=== PATIENT | male | born 1985 | race Caucasian/White ===

== ENCOUNTER 2021-02-12 12:57 | Outpatient (RCR) | payer OTHER, SELFPAY | END 2021-02-27 23:59 | disposition home or self-care (01) | LOC: SST 12:57 | PROVIDERS: PCP Registered Nurse; Referring Provider Registered Nurse; Visit Provider Registered Nurse | DX: R47.01 Aphasia (principal); R47.9 Unspecified speech disturbances | CPT/HCPCS: 92507; 92523; 92526; 92610 ==

== ENCOUNTER 2021-02-28 06:00 | Outpatient (RCR) | payer OTHER, SELFPAY | END 2021-03-30 23:59 | disposition home or self-care (01) | LOC: SST 06:00 | PROVIDERS: PCP Registered Nurse; Referring Provider Registered Nurse; Visit Provider Registered Nurse | DX: R47.01 Aphasia (principal); R47.9 Unspecified speech disturbances | CPT/HCPCS: 92507; 92526 ==

== ENCOUNTER 2021-03-31 06:00 | Outpatient (RCR) | payer OTHER, SELFPAY | END 2021-04-29 23:59 | disposition home or self-care (01) | LOC: SST 06:00 | PROVIDERS: PCP Registered Nurse; Referring Provider Registered Nurse; Visit Provider Registered Nurse | DX: R47.01 Aphasia (principal); R47.9 Unspecified speech disturbances | CPT/HCPCS: 92507; 92526 ==

== ENCOUNTER 2021-04-30 06:00 | Outpatient (RCR) | payer OTHER, SELFPAY | END 2021-05-30 23:59 | disposition home or self-care (01) | LOC: SST 06:00 | PROVIDERS: PCP Registered Nurse; Referring Provider Registered Nurse; Visit Provider Registered Nurse | DX: R47.01 Aphasia (principal); R47.9 Unspecified speech disturbances | CPT/HCPCS: 92507; 92526 ==

== ENCOUNTER 2021-05-31 06:00 | Outpatient (RCR) | payer OTHER, SELFPAY | END 2021-06-29 23:59 | disposition home or self-care (01) | LOC: SST 06:00 | PROVIDERS: PCP Registered Nurse; Referring Provider Registered Nurse; Visit Provider Registered Nurse | DX: R47.01 Aphasia (principal) | CPT/HCPCS: 92507 ==

== ENCOUNTER 2022-04-18 09:42 | Outpatient (CLI) | payer OTHER, SELFPAY ==
--- NOTE | 2022-04-18 10:00 | FL_ITS ---
WS: [id number] MODIFIED BARIUM SWALLOW HISTORY: Other dysphagia FLUOROSCOPY TIME: 3min [id number] # of spot films: 1 Modified barium swallow was performed by the speech pathologist. Fluoroscopy was provided with the pa tient in a lateral projection. Multiple food consistencies were provided. No aspiration or laryngeal penetration was evident. Patient had a difficult time initiating the swall owing mechanism. After the swallowing was initiated no abnormality. No significant coating of the pha rynx. Initiation during swallowing of the barium tablet was difficult. Once the swallowing was initia onelia no difficulty or obstruction in the esophagus. FL/FL barium swallow modifd [id number] IMPRESSION: 1. Difficulty initiating swallowing mechanism. 2. No aspiration or laryngeal penetration. Please see speech therapist report also for recommendations.
== END 2022-04-18 09:43 | disposition home or self-care (01) ==
PROVIDERS: PCP Registered Nurse; Visit Provider Otolaryngology
DX: R13.19 Other dysphagia (principal)
CPT/HCPCS: 74230; 92611

== ENCOUNTER 2022-10-11 07:11 | Outpatient (CLI) | payer OTHER, SELFPAY ==
--- NOTE | 2022-10-11 07:53 | MR_ITS ---
WS: [id number] MRI HEAD WITH CONTRAST TECHNIQUE: Sagittal T1, T2 axial, T2 axial FLAIR, axial susceptibility weighted imaging, axial diffus ion weighted images, and coronal T2 images were obtained. Pre and post-T1 axial and post T1 coronal i mages. ADC and FSPGR images. CLINICAL INFORMATION: DYSPHAGIA, UNSPECIFIED/DYSARTHRIA ANARTHRIA/WEAKNESS COMPARISON: CT head 2019 FINDINGS: No evidence of restricted diffusion to suggest acute ischemia. Ventricular system and basal cisterns are patent. No hemosiderin on the susceptibly weighted images. Slight hazy periventricular T2 hyperin tensity. No suspicious intracranial lesions. No abnormal gadolinium enhancement. Normal dural venous sinuses. Normal optic chiasm and pituitary infundibulum. Normal temporal lobes and hippocampal formations. Nor mal cavernous sinuses and Meckel's cave. Normal posterior fossa. Normal vascular flow voids at the sk ull base. No extra-axial fluid collections. No evidence of mass or mass effect. Normal posterior nasopharynx. Normal parapharyngeal fat. Mild mucosal thickening in the paranasal sin uses. Mastoid air cells well aerated. MR/MR head wo/w con [id number] IMPRESSION: 1. No evidence of restricted diffusion to suggest acute ischemia. 2. Minimal hazy periventricular T2 hyperintensity nonspecific may be incidenta l but can be seen with prior infectious or inflammatory etiologies. No focal in tracranial lesions. 3. No abnormal gadolinium enhancement. 4. No hemosiderin on susceptibly weighted images. 5. Temporal lobes and hippocampal formations are normal in appearance. 6. No other suspicious findings.
[2022-10-11 08:20] LABS: Erythrocyte Sedimentation Rate < 1 mm/hr (0-10)
[2022-10-11 08:21] LABS: Estmated Average Glucose 74; Hemoglobin A1C 4.2 % (4.0-6.0)
[2022-10-11] MEDS: gadobenate dimeglumine 20 mL vial IV (09:02)
[2022-10-12 13:00] LABS: PROTEIN, TOTAL 6.7 g/dL (6.1-8.1)
[2022-10-12 14:45] LABS: ALBUMIN 4.2 g/dL (3.8-4.8); ALPHA 1 GLOBULIN 0.3 g/dL (0.2-0.3); ALPHA 2 GLOBULIN 0.4 g/dL (0.5-0.9); BETA 1 GLOBULIN 0.3 g/dL (0.4-0.6); BETA 2 GLOBULIN 0.3 g/dL (0.2-0.5); GAMMA GLOBULIN 1.3 g/dL (0.8-1.7)
== END 2022-10-11 07:12 | disposition home or self-care (01) ==
PROVIDERS: PCP Registered Nurse; Visit Provider Internal Medicine
DX: R13.10 Dysphagia, unspecified (principal); R47.1 Dysarthria and anarthria; R53.1 Weakness
CPT/HCPCS: 36415; 70553; 83036; 83516; 83519; 84155; 84165; 85651; A9577

== ENCOUNTER 2023-01-09 06:00 | Outpatient (RCR) | payer OTHER, SELFPAY | END 2023-01-27 23:59 | disposition home or self-care (01) | LOC: TST 06:00 | PROVIDERS: Visit Provider Otolaryngology | DX: R47.9 Unspecified speech disturbances (principal); R47.01 Aphasia | CPT/HCPCS: 92507; 92523; 92526; 92610 ==

== ENCOUNTER 2023-01-28 06:00 | Outpatient (RCR) | payer OTHER, SELFPAY | END 2023-02-27 23:59 | disposition home or self-care (01) | LOC: TST 06:00 | PROVIDERS: PCP Registered Nurse; Visit Provider Otolaryngology | DX: R47.9 Unspecified speech disturbances (principal); R47.01 Aphasia; Z87.828 Personal history of other (healed) physical injury and trauma | CPT/HCPCS: 92507; 92526 ==

== ENCOUNTER 2023-02-13 10:47 | Outpatient (CLI) | payer OTHER, SELFPAY ==
--- NOTE | 2023-02-13 11:00 | FL_ITS ---
WS: [id number] Exam: FL barium swallow modifd [id number] Date/Time of Exam: 02/13/2023 10:54 AM Reason For Exam: R13.10 - Dysphagia, unspecified Fluoroscopy time: 6min [id number] minutes # of spot films: Modified barium swallow was performed in conjunction with the speech therapy service. The patient experienced some difficulty initiating the swallowing process at the level of the orophar ynx. The patient tolerated all consistencies of barium mixture foodstuffs without aspiration or penet ration. The patient ingested a barium tablet without complication or aspiration. FL/FL barium swallow modifd [id number] IMPRESSION: 1. The patient takes experienced some difficulty initiating the swallowing proc ess at the level of the oropharynx. 2. No aspiration or penetration was noted. A separate report of findings and recommendations will follow from the speech t herapy service.
== END 2023-02-13 10:48 | disposition home or self-care (01) ==
PROVIDERS: PCP Registered Nurse; Visit Provider Otolaryngology
DX: R13.12 Dysphagia, oropharyngeal phase (principal)
CPT/HCPCS: 74230; 92611

== ENCOUNTER 2023-02-28 06:00 | Outpatient (RCR) | payer OTHER, SELFPAY | END 2023-03-30 23:59 | disposition home or self-care (01) | LOC: TST 06:00 | PROVIDERS: PCP Registered Nurse; Visit Provider Otolaryngology | DX: R13.19 Other dysphagia (principal); R47.1 Dysarthria and anarthria; Z87.828 Personal history of other (healed) physical injury and trauma | CPT/HCPCS: 92507 ==

== ENCOUNTER 2023-03-27 11:22 | Outpatient (CLI) | payer OTHER, SELFPAY ==
[2023-04-02 00:44] LABS: HMGCR IgG Antibody <2 CU (<20)
[2023-04-05 14:56] LABS: Myositis EJ AB <11 SI (<11); Myositis JO-1 AB <11 SI (<11); Myositis MDA-5 AB <11 SI (<11); Myositis MI-2 Alpha AB <11 SI (<11); Myositis MI-2 Beta AB <11 SI (<11); Myositis NXP-2AB <11 SI (<11); Myositis OJ AB <11 SI (<11); Myositis PL-12 AB <11 SI (<11); Myositis PL-7 AB <11 SI (<11); Myositis SRP AB <11 SI (<11); Myositis TIF-1y AB <11 SI (<11)
== END 2023-03-27 11:23 | disposition home or self-care (01) ==
PROVIDERS: PCP Registered Nurse; Visit Provider Psychiatry & Neurology Neurology
DX: M62.81 Muscle weakness (generalized) (principal)
CPT/HCPCS: 36415; 83520; 84182; 86235

== ENCOUNTER → 2023-12-05 10:29 | Outpatient (BNVA) | payer MEDICAID, SELFPAY | PROVIDERS: PCP Registered Nurse; Visit Provider Registered Nurse | DX: Z79.899 Other long term (current) drug therapy (principal); Z71.89 Other specified counseling | CPT/HCPCS: 93005 ==

== ENCOUNTER 2024-12-01 16:44 | Emergency (ER) | payer MEDICAID, SELFPAY ==
[2024-12-01 16:47] VITALS: BP 113/68; PULSE 70; RESP 16; TEMP 36.6; O2SAT 98; BMI 20.9
--- NOTE | 2024-12-01 18:42 | XRR_ITS ---
PROCEDURE INFORMATION: Exam: XR Abdomen Exam date and time: 12/01/2024 6:55 PM Age: 39 years old Clinical indication: Device placement; Gi device; Gastrostomy, other; Prior surgery; Surgery date: 3-7 days post-operative; Surgery type: Peg tube placement; Peg tube confirmation; 15ml gastrograffin flushed through gtube, followed by 15ml normal saline alg TECHNIQUE: Imaging protocol: Radiologic exam of the abdomen. Views: Frontal supine view of the abdomen. 1 View. COMPARISON: No relevant prior studies available. FINDINGS: Tubes, catheters and devices: Peg tube with retainer in the mid body of the stomach. There is contrast in the stomach with no evidence of leak. Lungs: The lung bases are clear. Gastrointestinal tract: Scattered stool throughout the colon. Bones/joints: Unremarkable. XR/XR KUB portable [id number] IMPRESSION: Peg tube in the mid stomach. No visible leak.
--- NOTE | 2024-12-01 19:13 | W.ED.GENADLT ---
HPI - General Adult General: Chief complaint: General Medical Stated complaint: pulled gi tube, abd pain Time Seen by Provider: 12/01/24 18:02 History of Present Illness: 39-year-old male patient who had recent G-tube placement. He presents after he got caught in his waistband, and tucked. There was some bleeding. There is concerned that it is dislodged. He is having some pain. Bleeding is controlled. No fever. No vomiting. Related Data Home Medications ?Medication ?Instructions ?Recorded ?Confirmed clonidine HCl 0.1 mg tablet mg PO BID 12/05/23 05/31/24 pimozide 1 mg tablet mg PO DAILY 12/05/23 05/31/24 quetiapine 50 mg tablet mg PO DAILY 12/05/23 05/31/24 sertraline 50 mg tablet mg PO DAILY 12/05/23 05/31/24 Allergies Allergy/AdvReac Type Severity Reaction Status Date / Time No Known Allergies Allergy Verified 05/31/24 10:26 [facility] ED PFSH: Medical History History of reduction of orbital fracture History of traumatic head injury 2019 No pertinent past medical history Social History Smoking and tobacco/nicotine status: never used tobacco/nicotine Alcohol intake: former Substance/Drug Use: never Physical Exam Const: COMMON NORMALS: no acute distress GENERAL APPEARANCE: not ill appearing HENMT: COMMON NORMALS: normocephalic HEAD & SCALP: normocephalic Eye: COMMON NORMALS: Equal, round and reactive pupils present and EOMs intact bilaterally PUPIL: Yes Equal, round and reactive pupils present Neck/C-Spine: COMMON NORMALS: full ROM Chest: CHEST: Yes Symmetrical chest wall rise Resp: COMMON NORMALS: normal respiratory effort and clear to auscultation bilaterally AUSCULTATION: clear to auscultation bilaterally Cardio: COMMON NORMALS: regular rate and regular rhythm RATE: regular rate RHYTHM: regular rhythm GI: COMMON NORMALS: Soft to palpation INSPECTION: No Abdominal wall edema and No abdominal distension PALPATION: Yes Soft to palpation OTHER: Inspection of G-tube, reveals that is in place. Anchors are present. No bleeding. Course Vital Signs: Vital signs: Vital Signs Temperature 97.9 F 12/01/24 16:47 Pulse Rate 70 12/01/24 16:47 Respiratory Rate 16 12/01/24 16:47 Blood Pressure 113/68 12/01/24 16:47 Pulse Oximetry 98 12/01/24 16:47 Oxygen Delivery Me thod Room Air 12/01/24 16:47 MDM - General Adult Medical Decision Making G-tube is in place by x-ray. Diet confirms position. It flushes without pain or problem. It is re- dressed, and he will be allowed discharge. Lab Data Radiology Impressions KUB X-Ray 12/01/24 18:42 IMPRESSION: Peg tube in the mid stomach. No visible leak. All radiology interpretation(s) finalized by discharge Discharge Plan Discharge Patient Disposition: Home Clinical Impression: Problem with gastrostomy tube Condition: Stable Prescriptions: No Action quetiapine 50 mg tablet PO DAILY Rx Instructions: @ bedtime sertraline 50 mg tablet PO DAILY Rx Instructions: at bedtime clonidine HCl 0.1 mg tablet PO BID pimozide 1 mg tablet PO DAILY Rx Instructions: @ bedtime Discharge Orders: Discharge ED (Routine); Ordered 12/01/24 Ordered By: Abdirashid Hager Referrals: Rafy Mast FNP [Primary Care Provider, Family Practice] Patient Instructions: GI Tube Care, Opioid Safety, Pain Management Activity Restrictions/Additional Instructions: Your feeding tube is in place. Return for any problems. Follow-up with your doctor. Print Language: Honduran Coding Level of Care Code ED Watch Electrician for Jaja Lo
== END 2024-12-01 19:55 | disposition home or self-care (01) ==
PROVIDERS: Emergency Provider Emergency Medicine; PCP Registered Nurse
DX: K94.23 Gastrostomy malfunction (principal)
CPT/HCPCS: 74018; 99283; Q9963

== ENCOUNTER 2025-07-12 13:12 | Emergency (ER) | payer MEDICAID, SELFPAY ==
--- OUTSIDE RECORDS SUMMARY | 2025-07-09 10:00 | XMS_ITS | Encounter Summary ---
Author Organization [facility] Address 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 Video Visit [facility] Infectious Disease[facility] [address] [facility] [address] [place] [address] Alie Bill, [facility] [address] [facility] [address] [place] [address] Prepatellar bursitis of right knee (Primary Dx); Cellulitis of right lower extremity; Tourette syndrome Social History Tobacco Use Types Packs/Day Years Used Date Smoking Tobacco: Never Smokeless Tobacco: Current Chew Alcohol Use Standard Drinks/Week Comments Not Currently 0 (1 standard drink = 0.6 oz pur e alcohol) Haven't had a beer in a year Feeling Safe Answer Date Recorded Are you in a relationship wi th someone who hurts you emotionally and/or physically? 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 Gender Identity Not on file Sexual Orientation Not on file documented as of this encounter Progress Notes * Alie Bill, DNP - 07/09/2025 10:02 AM CST INFECTIOUS DISEASES CLINIC NOTE Patient Active Problem List Diagnosis Code Excessive salivation K11.7 TBI (traumatic brain injury) ([facility]) S06.9XAA Dysphonia of Saeid de La Tourette's syndrome F95.2, R49.0 Dysphagia R13.10 Dysarthria R47.1 Abnormal gait R26.9 Functional neurological symptom disorder with mixed symptoms F44.7 PEG tube malfunction ([facility]) K94.23 Infected abrasion of skin of right foot S90.811A, L08.9 S/P Bursectomy, D&I (02/16/25), Septic prepatellar bursitis of right knee M71.161 H/O traumatic brain injury Z87.820 Protein-calorie malnutrition, moderate E44.0 Cellulitis of right lower extremity L03.115 Receiving intravenous antibiotic treatment as outpatient Z79.2 Therapeutic drug monitoring Z51.81 Ataxia R27.0 Peripheral polyneuropathy G62.9 Tremor R25.1 Feeding by G-tube ([facility]) Z93.1 Tourette syndrome F95.2 HPI: is a 40 y.o. male being seen for/chief complaint of septic bursitis right knee, and cellulitis. Patient w/PMH of TBI, Tourette syndrome, and protein calorie malnutrition. Patient w/recent hospitalization 02/15/2025. Patient previously evaluated and managed by DR Tomas Carmona. s/p debridement 02/16/2025 w/CXs negative. Patient treated w/IV ceftriaxone and daptomycin w/stop date 03/06/2025which has been completed. Today's encounter, for 3-month follow-up, was completed via two-way synchronous (audio and video) communication w/patient at home. Patient expressed understanding that usingtechnology outside of [facility] has higher potential to introduce privacy risks. Patient's identity was confirmed (YES). Patient gave verbal consent to have these services billed to their insurance and expressed understanding that co-insurance and deductible may apply (YES). Cumulative time spent delivering the care documented in this encounter 15 minutes. Patient denies fever, chills, nausea, vomiting, diarrhea, or pain. CRP 04/22/2025 normal. 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 Family History is non-contributory to his current ID illness. Subjective: Review of Systems Constitutional: Denies fatigue, fever, or chills Skin: Denies rash, new lesions, or itching HEENT: Denies headache Respiratory: Denies cough, or SOB CV: Denies chest pain, or palpitations PV: Denies pain, bruising, or swelling GI/: Denies nausea, vomiting, or diarrhea; admits eating and drinking okay MS: Denies pain Objective: Physical Exam There were no vitals taken for this visit. General appearance: Well developed; awake, alert, and oriented to person, place, and time; pleasantand cooperative; NAD Skin: [place], warm, and dry; surgical incision right knee well-healed without surrounding erythema, patient denies warmth HEENT: NCAT; PERRL, anicteric; moist mucous membranes Chest/Lungs: Regular respiratory rate, nonlabored, good chest excursion CV: RRR PV: No edema MS: LACEY X4 Neuro: Awake, alert, and oriented to person, place, and time Assessment: Septic prepatellar bursitis Cellulitis RLE-resolved Tourette's TBI Plan: Monitoring off antibiotic therapy CRP Follow-up in the infectious disease office in 6 months, or sooner, if needed Alie Bill DNP Infectious Diseases [facility] This note may have been written in part with the assistance of [employer] dictation software. Every effort is made when this program is used to proofread the documentation. Any errors in spelling, syntax, or meaning should be interpreted in the context of the broader note. OLETTERING MACHINE OPERATOR documented in this encounter Plan of Treatment Upcoming Encounters Date Type Department Care Team (Late st Contact Info) Description 07/16/2025 11:00 AM PHOTOLETTERING MACHINE OPERATOR Appointment [facility] [address] [place] [phone] Meño Mesa MD [address] [place] [address] Leo Sherman, RD 10/09/2025 8:40 AM CDT Office Visit [facility] Family Medicine [place] [address] [address] Meño Mesa MD [address] [address] Scheduled Orders Name Type Priority Associated Diagnoses Orde r Schedule C-REACTIVE PROTEIN Lab Routine Prepatellar bursitis of right knee Cellulitis of right lower extremity Tourette syndrome Expected: 07/09/2025 (Approximate), Expires: 07/09/2026 documented as of this encounter Visit Diagnoses Diagnosis Prepatellar bursitis of right knee- Primary Prepatellar bursitis Cellulitis of right lower extremity Cellulitis and abscess of leg, except foot Tourette syndrome Tourette's disorder documented in this encounter Care Teams Kettle Chipper Relationship Specialty Start Date End Date Meño Mesa MD [address] [address] PCP - General Family Practice 07/05/24 documented as of this encounter
--- OUTSIDE RECORDS SUMMARY | 2025-07-12 13:17 | XMS_ITS | Encounter Summary ---
Author Organization [facility] Address [address] [place] [address] Care Team Providers Care Wastewater Design Engineer Name Role Phone Unavailable Primary Care Provider Unavailabl e Encounter Details Date Type Department Care Team (Latest Contact Info) Description 06/04/2003 Outpatient Historical [facility] Oral and Maxillo Surgery- [address] [place] [phone] Joni Colbert, DDS [address] [place] [phone] NASAL BONE FX-OPEN (Primary Dx); FX ORBITAL FLOOR-OPEN (CMS/HCC) Social History Tobacco Use Types Packs/Day Years Used Date Smoking Tobacco: Never Assessed Sex and Gender Information Value Date Recorded Sex Assigned at Not on file 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
--- OUTSIDE RECORDS SUMMARY | 2025-07-12 13:17 | XMS_ITS | Clinical Summary ---
Author Organization [facility] Address [address] [place] [address] Care Team Providers Care Warehouse Checker Name Role Phone Lauren Mast [facility] Primary Care Provider + Allergies No known active allergies Medications guanFACINE 2 mg tablet extended release 24 hr Take 2 mg by mouth. 10/02/2024 Active sertraline (ZOLOFT) 100 mg tablet Take 100 mg by mouth. 10/23/2023 Active QUEtiapine (SEROQUEL) 50 mg tablet Take 50 mg by mouth. 10/27/2023 Active haloperidoL (HALDOL) 1 mg tablet Take 1 mg by mouth in the morning and 1 mg in the evening. 10/18/2024 Active Abilify 5 mg tablet Take 5 mg by mouth in the morning. 01/01/2025 Active Active Problems Problem Noted Date Diagnosed Date Tourette syndrome 11/05/2024 Ataxia 11/05/2024 Tremor 11/05/2024 Dysphagia 11/05/2024 Social History Tobacco Use Types Packs/Day Years Used Date Smoking Tobacco: Never Passive Smoke Exposure: Never Smokeless Tobacco: Never Tobacco Cessation:Counseling Given: Not Answered Alcohol Use Standard Drinks/Week Comments Never 0 (1 standard drink = 0.6 oz pur e alcohol) [facility] Utilities Answer Date Recorded In the past 12 months has e electric, gas, oil, or water company threatened to shut off services in your home? No 01/13/2025 PHQ-2 Answer Date Recorded PHQ-2 Score 0 11/05/2024 Hunger Vital Sign Answer Date Recorded Within the past 12 months, y ou worried that your food would run out before you got the money to buy more. Never true 01/14/20 25 Within the past 12 months, t he food you bought just didn't last and you didn't have money to get more. Never true 01/13/2025 PRAPARE - Transportation Answer Date Re corded In the past 12 months, has l ack of transportation kept you from medical appointments or from getting medications? No 12/29 In the past 12 months, has l ack of transportation kept you from meetings, work, or from getting things needed for daily living? No 01/13/2025 Housing Stability Vital Sign Answer Angel e Recorded In the last 12 months, was t here a time when you were not able to pay the mortgage or rent on time? No 01/13/2025 In the past 12 months, how m any times have you moved where you were living? 0 01/13/2025 At any time in the past 12 m [facility], were you homeless or living in a jail (including now)? 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 Gender Identity Not on file Sexual Orientation Not on file Last Filed Vital Signs Vital Sign Reading Time Taken Comments Blood Pressure 112/69 11/05/2024 10:22 AM CDT Pulse 71 11/05/2024 10:22 AM CDT Temperature - - Respiratory Rate 18 01/13/2025 1:52 PM CDT Oxygen Saturation - - Inhaled Oxygen Concentration - - Weight 64 kg (141 lb) 01/13/2025 1:52 PM CDT Height 167.6 cm (5' 6 ) 01/13/2025 1:52 PM CDT Body Mass Index 22.76 01/13/2025 1:52 PM CDT Plan of Treatment Health Maintenance Due Date Last Done Comments Annual Wellness 1987 MMR Vaccines (1 of 1 - Standard series) 1988 Varicella Vaccines (1 of 2 - 13+ 2-dose series) 2000 Influenza Vaccination (#1) 2025 07/05/2024 COVID-19 Vaccine (3 - 2024-2 6 season) 2025 11/12/2020, 10/22/2020 Td, Tdap Vaccines Adult 07/02/2025 07/02/20 15, 08/01/2001 Hepatitis B Vaccines Completed 11/01/1999, 07/16/1999, 06/07/1999 HIB Vaccines Aged Out No longer eligi ble based on patient's age to complete this topic HPV Vaccines (No Doses Required) Completed Hepatitis A Vaccines Aged Out No long er eligible based on patient's age to complete this topic IPV Vaccines Aged Out No longer eligi ble based on patient's age to complete this topic Meningococcal Vaccines Aged Out No lo nger eligible based on patient's age to complete this topic Pneumococcal Vaccine: Pediatrics (0 to 5 Years) and At-Risk Patients (6 to 49 Years) Aged Out No longer eligible b ased on patient's age to complete this topic RSV Mab Nirsevimab (Beyfortu s) <20 months Aged Out No longer eligible b ased on patient's age to complete this topic Rotavirus Vaccines Aged Out No longer eligible based on patient's age to complete this topic Insurance [facility] [employer] Care Teams Warehouse Checker Relationship Specialty Start Date End Date Lauren Mast FNP [address] [place] [address] PCP - General Family Medicine 11/05/24
--- OUTSIDE RECORDS SUMMARY | 2025-07-12 13:17 | XMS_ITS | Clinical Summary ---
Author Organization [facility] Address [address] [address] Phone Care Team Providers Care Ambulette Driver Name Role Phone Unavailable Primary Care Provider Unavailabl e Allergies No known active allergies Medications No known medications Active Problems No known active problems Immunizations Immunization Administration Dates Next Due (PFIZER)(12 YR UP) COVID-19 VACCINE - EMERGENCY USE AUTHORIZATION, MRNA, [id number](PF) 30 MCG/0.3 ML IM SUSP 11/12/2020,10/22/2020 (TDVAX)(7 YRS UP) TETANUS AN D DIPHTHERIA TOXOIDS, ADSORBED (2 LF OF TETANUS TOXOID AND 2 LF OF DIPHTHERIA TOXOID), 0.5ML (PF), IM 08/01/2001 Hepatitis B Vaccine 11/01/1999,07/16/1999,1998 Social History Tobacco Use Types Packs/Day Years Used Date Smoking Tobacco: Never Smokeless Tobacco: Current Alcohol Use Standard Drinks/Week Comments Yes 0 (1 standard drink = 0.6 oz pur e alcohol) Sex and Gender Information Value Date Recorded Sex Assigned at Not on file Legal Sex Male 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 TRANSMISSION ENGINEER Gender Identity Not on file Sexual Orientation Not on file Last Filed Vital Signs Vital Sign Reading Time Taken Comments Blood Pressure 134/71 05/14/2013 11:12 AM CDT Pulse 79 05/09/2013 12:06 PM CDT Temperature 36.1 C (97 F) 05/14/2013 11:12 AM CDT Respiratory Rate 18 05/14/2013 11:12 AM CDT Oxygen Saturation 98% 05/14/2013 11:12 AM CDT Inhaled Oxygen Concentration - - Weight 68 kg (150 lb) 05/14/2013 11:12 AM CDT Height 167.6 cm (5' 6 ) 05/14/2013 11:12 AM CDT Body Mass Index 24.21 05/14/2013 11:12 AM CDT Plan of Treatment Health Maintenance Due Date Last Done Comments DTAP/TDAP/TD VACCINES (2 - Tdap) 08/02/2001 08/01/19 02 INFLUENZA VACCINE (#1) 2025 COVID-19 Vaccine (3 - 2024-2 6 season) 2025 11/12/2020, 10/22/2020 HEPATITIS B VACCINES Completed 11/01/1999, 07/16/1999, 06/07/1999 HPV VACCINES (No Doses Required) Completed
--- OUTSIDE RECORDS SUMMARY | 2025-07-12 13:17 | XMS_ITS | Encounter Summary ---
Author Organization [facility] Address [address] [place] [address] Care Team Providers Care Wallboard Worker Name Role Phone Unavailable Primary Care Provider Unavailabl e Encounter Details Date Type Department Care Team (Latest Contact Info) Description 08/01/2001 Outpatient Historical [facility] Family Medicine [place] [address] [facility] [address] [place] [phone] Maria Renee MD NO ADDRESS ON FILE Routine medical exam (Primary Dx) Social History Tobacco Use Types Packs/Day Years Used Date Smoking Tobacco: Never Assessed Sex and Gender Information Value Date Recorded Sex Assigned at Not on file Legal Sex Male 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
--- OUTSIDE RECORDS SUMMARY | 2025-07-12 13:17 | XMS_ITS | Encounter Summary ---
Author Organization [facility] Address [address] [place] [address] Care Team Providers Care Lead Pony Rider Name Role Phone Unavailable Primary Care Provider Unavailabl e Encounter Details Date Type Department Care Team (Latest Contact Info) Description 06/23/2003 Outpatient [facility] Oral and Maxillo Surgery[address] [place] [phone] Blaine Walker, PhD NO ADDRESS ON FILE SURGERY FOLLOWUP, UNSPEC (Primary Dx) Social History Tobacco Use Types Packs/Day Years Used Date Smoking Tobacco: Never Assessed Sex and Gender Information Value Date Recorded Sex Assigned at Not on file Legal 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
--- OUTSIDE RECORDS SUMMARY | 2025-07-12 13:17 | XMS_ITS | Encounter Summary ---
Author Organization [facility] Address 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 Gender Identity Not on file Sexual Orientation Not on file documented as of this encounter Plan of Treatment Upcoming Encounters Date Type Department Care Team (Late st Contact Info) Description 07/16/2025 11:00 AM MERCHANDISE EXECUTION LEADER Appointment [facility] [address] [place] [phone] Meño Mesa MD [address] [place] [address] Leo Sherman, DAMON 10/09/2025 8:40 AM CDT Office Visit [facility] [address] [place] [address] Meño Mesa MD [address] [phone] documented as of this encounter Visit Diagnoses Not on filedocumented in this encounter Care Teams Clothing Sales Assistant Relationship Specialty Start Date End Date Meño Mesa MD [address] [address] PCP - General Family Practice 07/05/24 documented as of this encounter
--- OUTSIDE RECORDS SUMMARY | 2025-07-12 13:17 | XMS_ITS | Clinical Summary ---
Author Organization [facility] Address [facility] [place] [address] Care Team Providers Care Ladle Repairman Name Role Phone Jason Luciano MD Primary Care Provider Active Problems No known active problems Social History Tobacco Use Types Packs/Day Years Used Date Smoking Tobacco: Never Assessed Personal Safety Answer Date Recorded Getting School Help Needed Not on file 10/14 Sex and Gender Information Value Date Recorded Sex Assigned at Not on file Legal Sex Male 7:04 AM CDT Gender Identity Male 04/02/2024 6:12 PM CDT Sexual Orientation Straight 04/02/2024 6: 12 PM CDT Plan of Treatment Not on file Insurance [facility] [place] [id number] [facility] Care Teams Ladle Repairman Relationship Specialty Start Date End Date Jason Luciano MD PCP - General Neurology 12/22/22
--- OUTSIDE RECORDS SUMMARY | 2025-07-12 13:17 | XMS_ITS | Clinical Summary ---
Author Organization [facility] Address [address] [facility] [address] [place] [address] Phone Care Team Providers Care Blind Hooker Name Role Phone Meño Mesa MD Primary Care Provider [phone] Allergies No known active allergies Medications diphenhydrAMIN E (BENADRYL) 25 mg tablet Take 25 mg by mouth. Active sertraline (ZOLOFT) 100 mg tablet Take 1 Tablet (100 mg) by mouth daily. 90 Tablet 2 4 Active ARIPiprazole (ABILIFY) 5 mg tablet Take 5 mg by mouth daily. Active guanFACINE (INTUNIV) 2 mg Extended Release 24 hour tablet Take 2 mg by mouth daily. Active acetaminophen (TYLENOL) 325 mg tablet Take 2 Tablets (650 mg) by mouth every 6 hours as needed for Pain, Break-Through. 45 Tablet 5 Active aspirin (ECOTRIN EC) 81 mg Tablet, Delayed Release (E.C.) Take 1 Tablet (81 mg) by mouth 2 times daily. Take for three months for blood clot prevention. 180 Tablet 02/20/2025 1:07 PM CDT 5 Active HYDROcodone-ac etaminophen (NORCO) 5-325 mg tabletIndicati ons:Prepatella r bursitis of right knee Take 1 Tablet by mouth every 4 hours as needed for Pain, Break-Through. For pain not relieved by tylenol or ibuprofen. Max Daily Amount: 6 Tablets 20 Tablet 02/20/2025 1:07 PM CDT Active Additional Information Patient not taking.Reported on 04/22/2025 ibuprofen (MOTRIN) 600 mg tablet Take 1 Tablet (600 mg) by mouth every 6 hours as needed for Pain, Mild. 45 Tablet 1 02/20/2025 1:07 PM CDT Active haloperidoL (HALDOL) 1 mg tablet Take 1 mg by mouth 2 times daily. Active Narcan 4 mg/actuation Hailey, Non-Aerosol CALL 911. USE ONE FULL SPRAY IN ONE NOSTRIL ONE TIME. REPEAT EVERY 2-3 MINUTES NEEDED IF NO OR MINIMAL RESPONSE. Active ARIPiprazole (ABILIFY) 10 mg tablet Take 10 mg by mouth daily. Active HYDROcodone-ac etaminophen 2.5-108 mg/5 mL Solution TAKE 15 ML BY MOUTH OR VIA G TUBE EVERY SIX HOURS NEEDED FOR PAIN Active QUEtiapine (SEROquel) 50 mg tablet Take 1 Tablet (50 mg) by mouth daily at bedtime. 100 Tablet 2 Active QUEtiapine (SEROquel) 50 mg tablet Take 1 Tablet (50 mg) by mouth daily at bedtime. 100 Tablet 5 06/18/20 25 Discontin ued(Reord er) Active Problems Problem Noted Date Diagnosed Date Feeding by G-tube 04/22/2025 Tourette syndrome 04/22/2025 Receiving intravenous antibiotic treatment as ou tpatient 02/20/2025 Therapeutic drug monitoring 02/20/2025 Cellulitis of right lower extremity 02/19/2025 H/O traumatic brain injury 02/16/2025 Protein-calorie malnutrition, moderate S/P Bursectomy, D&I (02/16/25 ), Septic prepatellar bursitis of right knee 02/15/2025 PEG tube malfunction 01/16/2025 Infected abrasion of skin of right foot 01/17/20 25 Ataxia 11/05/2024 Tremor 11/05/2024 Excessive salivation 07/05/2024 TBI (traumatic brain injury) 07/05/2024 Dysphagia 07/05/2024 Dysarthria 07/05/2024 Abnormal gait 07/05/2024 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 In the past risperidone caused weight gain, anxiety, incontinence Peripheral polyneuropathy 03/15/2023 Encounters Date Type Department Care Team Description 07/09/2025 10:00 AM PLASTIC SEWER Video Visit [facility] Infectious Disease[address] [phone] Alie Bill DNP Prepatellar bursitis of right knee (Primary Dx); Cellulitis of right lower extremity; Tourette syndrome 07/08/2025 External Device Data STL ABSTRACTION Provider, Abstract 06/18/[address] [phone] Lauren Mast, ACTIVE DIRECTORY ADMINISTRATOR 06/17/2025 External Device Data STL ABSTRACTION Provider, Abstract 06/04/2025 External Device Data STL ABSTRACTION Provider, Abstract 05/28/2025 External Device Data STL ABSTRACTION Provider, Abstract 05/13/2025 External Device Data STL ABSTRACTION Provider, Abstract 05/13/2025 External Device Data STL ABSTRACTION Provider, Abstract 05/07/2025 10:14 AM CDT - 05/07/2025 11:59 PM CDT Hospital Encounter [facility] [address] [place] [address] Meño Mesa MD Gott, Leo Hernandez, RD Dysphagia, unspecified type Discharge Disposition: Home or Self Care 04/23/2025 Results Follow-Up [facility] Infectious Disease[address] [phone] Alie Bill DNP C-REACTIVE PROTEIN 04/22/2025 10:20 AM CDT Office Visit [address] [phone] Meño Mesa MD Traumatic brain injury, with loss of consciousness of 30 minutes or less, sequela (Primary Dx); Prepatellar bursitis of right knee; Cellulitis of right lower extremity; Tourette syndrome; Functional neurological symptom disorder with mixed symptoms; Feeding by G-tube (CMS/HCC); Dysphonia of Saeid de La Tourette's syndrome 04/22/2025 External Device Data STL ABSTRACTION Provider, Abstract 04/22/2025 External Device Data STL ABSTRACTION Provider, Abstract 04/15/2025 External Device Data STL ABSTRACTION Provider, Abstract from Last 3 Months Immunizations Immunization Administration Dates Next Due (PFIZER)(12 YR UP) COVID-19 VACCINE - EMERGENCY USE AUTHORIZATION, MRNA, [id number](PF) 30 MCG/0.3 ML IM SUSP 11/12/2020,10/22/2020 (TDVAX)(7 YRS UP) TETANUS AN D DIPHTHERIA TOXOIDS, ADSORBED (2 LF OF TETANUS TOXOID AND 2 LF OF DIPHTHERIA TOXOID), 0.5ML (PF), IM 08/01/2001 Adacel Vaccine > 7 Yo IM 07/02/2015 Hepatitis B Vaccine 11/01/1999,07/16/1999,1998 Hepatitis B Vaccine, Unspeci fied Formulation 11/01/1999,07/16/1999,06/07/1999 INFLUENZA VACCINE TRIVALENT SPLIT VIRUS, (6 MOS UP), 0.5ML (PF), IM 04/22/2025,07/05/2024 Family History Medical History Relation Name Comments Hypertension Father Deshaun Heart Disease Mother Michaelle Relation Name Status Comments Father Deshaun Mother Michaelle Alive Social History Tobacco Use Types Packs/Day Years Used Date Smoking Tobacco: Never Smokeless Tobacco: Current Chew Tobacco Cessation:Ready to Q uit: Not Asked; Counseling Given: Not Answered Alcohol Use Standard Drinks/Week Comments Not Currently [...] on file Legal Sex Male 4:35 PM PLASTIC SEWER Gender Identity Not on file Sexual Orientation Not on file Last Filed Vital Signs Vital Sign Reading Time Taken Comments Blood Pressure 109/71 04/22/2025 10:06 AM CDT Pulse 67 04/22/2025 10:06 AM CDT Temperature 37.1 C (98.7 F) 04/22/2025 10:06 AM CDT Respiratory Rate 14 04/22/2025 10:06 AM CDT Oxygen Saturation 91% 04/22/2025 10:06 AM CDT Inhaled Oxygen Concentration - - Weight 63.1 kg (139 lb 3.2 oz) 04/22/2025 10:06 AM CDT Height 170.2 cm (5' 7 ) 04/22/2025 10:06 AM CDT Body Mass Index 21.8 04/22/2025 10:06 AM CDT Plan of Treatment Upcoming Encounters Date Type Department Care Team (Late st Contact Info) Description 07/16/2025 11:00 AM PLASTIC SEWER Appointment [facility] [address] [place] [phone] Meño Mesa MD [address] [phone] Leo Sherman, DAMON 10/09/2025 8:40 AM CDT Office Visit [facility] [place] [address] [phone] Meño Mesa MD [address] [phone] Health Maintenance Due Date Last Done Comments COVID-19 Vaccine (3 - 2024- season) 2025 11/12/2020, 10/22/2020 DTAP/TDAP/TD VACCINES (3 - Td or Tdap) 07/02/2025 07/02/2015, 08/01/2001 Preventative Visit-Managed Medicaid 04/22/2026 Postponed from 2006 (Therapeutic Plan Prohibits) HEPATITIS B VACCINES Completed 11/01/1999, 11/01/1999, 07/16/1999, Additional history exists INFLUENZA VACCINE Completed 04/22/2025, 07/05/2024 HPV VACCINES (No Doses Required) Completed Medical Devices Implanted Type Area Interventional Radiologist Device Identifier Shelf Expiration Date Model / Serial / Lot 18fx 2.5cm Minione Button-01/31/20 25 Implanted:Qty : 1 on 01/30/2025 by Chavez Wu Feeding Device Left: Abdomen 07/31/2026 [id number] / / [id number] Explanted Type Area Interventional Radiologist Device Identifier Shelf Expiration Date Model / Serial / Lot Tube Feeding Rich Gastro Bolus 16fr [id number] - [id number] Implanted:Qty: 1 on 11/29/2024 by Howie Jung MD at [facility] Explanted:Qty: 1 on 01/30/2025 by Chavez Wu Feeding Device Left: Stomach [employer] fka HALYARD [id number] 08/07/2027 [id number] V / / [id number] Procedures Procedure Name Priority Date/Time Associated Diagnosis Comments C-REACTIVE PROTEIN Routine 04/22/2025 11 :09 AM CDT Prepatellar bursitis of right knee Cellulitis of right lower extremity Tourette syndrome from Last 3 Months Results * C-REACTIVE PROTEIN (04/22/2025 11:09 AM CDT) CRP <3.0 <8.0 mg/L [facility] Comment: Test Performed at: [facility] [address] [address] [address] Yanet Moyer MD Blood 04/22/2025 11:0 9 AM CDT 04/23/2025 5:51 AM CDT Alie Bill [facility] CHEMISTRY ORDERABLES Final Result [facility] [phone] [facility] [address] [address], [place] [address] from Last 3 Months Insurance [facility] PLAN [facility] [id number] RX INFOCROSSING Medicaid Advance Directives For more information, please contact: [phone] * Full Code (Latest Code Status on File) Date Activated Date Inactivated Comments 02/18/2025 7:55 AM 02/20/2025 3:12 PM * Full Code Date Activated Date Inactivated Comments 02/15/2025 10:09 PM 02/16/2025 3:17 PM Care Teams Blind Hooker Relationship Specialty Start Date End Date Meño Mesa MD [address] [phone] PCP - General Family Practice 07/05/24
--- OUTSIDE RECORDS SUMMARY | 2025-07-12 13:17 | XMS_ITS | Encounter Summary ---
Author Organization [facility] Address [address] [place] [address] Care Team Providers Care Regulatory Consultant Name Role Phone Unavailable Primary Care Provider Unavailabl e Encounter Details Date Type Department Care Team (Latest Contact Info) Description 11/28/2001 Outpatient Historical [facility] Family Medicine- [place] [address] [place] [phone] Maria Renee MD NO ADDRESS ON FILE Dermatitis due to plant (Primary Dx) Social History Tobacco Use Types Packs/Day Years Used Date Smoking Tobacco: Never Assessed Sex and Gender Information Value Date Recorded Sex Assigned at Not on file 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
--- OUTSIDE RECORDS SUMMARY | 2025-07-12 13:17 | XMS_ITS | Encounter Summary ---
Author Organization [facility] Address [address] [place] [address] Care Team Providers Care Cast Associate Name Role Phone Unavailable Primary Care Provider Unavailabl e Encounter Details Date Type Department Care Team (Latest Contact Info) Description 06/04/2003 Outpatient Historical [facility] [address] [address] AMBULANCE, [facility] CLOSE SKULL FRACTURE NEC (CMS/HCC) (Primary Dx) Social History Tobacco Use Types Packs/Day Years Used Date Smoking Tobacco: Never Assessed Sex and Gender Information Value Date Recorded Sex Assigned at Not on file Legal Sex Male 4:31 AM BUS GIRL Gender Identity Not on file Sexual Orientation Not on file documented as of this encounter Plan of Treatment Not on file documented as of this encounter Visit Diagnoses Diagnosis Other closed skull fracture without mention of intracranial injury, unspecified state of consciousness- Primary documented in this encounter
--- OUTSIDE RECORDS SUMMARY | 2025-07-12 13:17 | XMS_ITS | Encounter Summary ---
Author Organization [facility] Address [address] [place] [address] Care Team Providers Care Window Glazier Helper Name Role Phone Unavailable Primary Care Provider Unavailabl e Encounter Details Date Type Department Care Team (Latest Contact Info) Description 07/10/2003 Outpatient [facility] Oral and Maxillo Surgery[address] [place] [phone] Joni Colbert, DDS [address] [place] [phone] SURGERY FOLLOWUP, UNSPEC (Primary Dx) Social History Tobacco Use Types Packs/Day Years Used Date Smoking Tobacco: Never Assessed Sex and Gender Information Value Date Recorded Sex Assigned at Not on file Legal Sex Male 4:31 AM SPRAYER HAND Gender Identity Not on file Sexual Orientation Not on file documented as of this encounter Plan of Treatment Not on file documented as of this encounter Visit Diagnoses Diagnosis Follow-up examination, following unspecified surgery- Primary documented in this encounter
--- OUTSIDE RECORDS SUMMARY | 2025-07-12 13:17 | XMS_ITS | Clinical Summary ---
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 Gender Identity Not on file Sexual Orientation Not on file Plan of Treatment Health Maintenance Due Date Last Done Comments Lipid Panel 1987 MMR Vaccines (1 of 1 - Stand jorge series) 1988 DTaP,Tdap,and Td Vaccines (1 - Tdap) 1994 Varicella Vaccines (1 of 2 - 13+ 2-dose series) 2000 Depression Screening 2005 Hepatitis C Screening 2005 Social Drivers of Health (SDoH) 2005 Hepatitis B Vaccines (1 of 3 - 19+ 3-dose series) 2006 HPV Vaccines (1 - 3-dose SCD M series) 2014 COVID-19 Vaccines ( - 2024- season) 2025 Influenza Vaccine (#1) 2025 Zoster Vaccines (1 of 2) 2037 RSV Vaccines (1 - 1-dose 75+ series) 2062 HIB Vaccines Aged Out No longer eligi ble based on patient's age to complete this topic Hepatitis A Vaccines Aged Out No long er eligible based on patient's age to complete this topic IPV Vaccines Aged Out No longer eligi ble based on patient's age to complete this topic Meningococcal B Vaccine Aged Out No l onger eligible based on patient's age to complete this topic Meningococcal Vaccine Aged Out No javed floresita eligible based on patient's age to complete this topic Pneumococcal Vaccines Aged Out No javed floresita eligible based on patient's age to complete this topic Rotavirus Vaccines Aged Out No longer eligible based on patient's age to complete this topic
[2025-07-12 13:29] VITALS: BP 104/70; PULSE 77; RESP 16; TEMP 36.7; O2SAT 97
--- NOTE | 2025-07-12 15:04 | W.ED.GENADLT ---
HPI - General Adult General: Chief complaint: General Medical Stated complaint: gi tube issue Time Seen by Provider: 07/12/25 14:45 Source: patient Mode of arrival: ambulatory Limitations: no limitations History of Present Illness: Patient is a 40-year-old male who presents to the emergency department for evaluation of PEG tube. States that the connector attachment part broke off he is unsure of how might of rolled over in melanite. Tube is still functional he is still been getting feedings he just wants the broken part replaced. No other symptoms at this time. He had it placed due to dysphagia. MD complaint: Broken part of PEG tube Associated symptoms: Deny chest pain, dyspnea, headache(s), nausea, rash, palpitations or vomiting Related Data Home Medications ?Medication ?Instructions ?Recorded ?Confirmed quetiapine 50 mg tablet mg PO DAILY 12/05/23 05/31/24 sertraline 100 mg tablet 150 mg PO QAM 07/12/25 07/12/25 tetrabenazine 12.5 mg tablet See Rx Instructions .Route .COMPLEX 07/12/25 07/12/25 Allergies Allergy/AdvReac Type Severity Reaction Status Date / Time No Known Allergies Allergy Verified 07/12/25 13:34 Review of Systems General: Reports: 10 or more systems reviewed and unremarkable except in HPI and below Const: Reports: other (Broken part of PEG tube); Denies: fever(s), chills or fatigue Eyes: Denies: change in vision ENMT: Denies: throat pain, ear or mastoid pain or nasal discharge Card: Denies: chest pain, palpitations, swelling of feet/ankles or lightheadedness Resp: Denies: dyspnea, productive cough or wheezing GI: Denies: abdominal pain, nausea, vomiting, diarrhea or constipation : Denies: flank pain, difficulty urinating, dysuria or urinary frequency Musc: Denies: neck pain, back pain or joint pain Skin/Breast: Denies: rash Neuro: Denies: headache(s), numbness in extremities or weakness in extremities PFSH ED PFSH: Medical History History of reduction of orbital fracture History of traumatic head injury 2019 No pertinent past medical history Social History Smoking and tobacco/nicotine status: never used tobacco/nicotine Alcohol intake: former Substance/Drug Use: never Physical Exam Const: COMMON NORMALS: no acute distress and no limitations GENERAL APPEARANCE: cooperative, comfortable and well developed ORIENTATION/CONSCIOUSNESS: Yes awake OTHER: Nontoxic-appearing HENMT: COMMON NORMALS: normocephalic, atraumatic and hearing grossly normal bilaterally HEAD & SCALP: normocephalic and atraumatic GI: COMMON NORMALS: Soft to palpation and non-tender AUSCULTATION: Yes normoactive bowel sounds PALPATION: Yes Soft to palpation RECTAL EXAM: Yes deferred OTHER: PEG tube left upper quadrant. Cap appears to be broken, but PEG tube functional Skin: COMMON NORMALS: no rashes or lesions noted GENERAL SKIN EXAM: no rashes or lesions noted Course Vital Signs: Vital signs: Vital Signs Temperature 98.0 F 07/12/25 13:29 Pulse Rate 77 07/12/25 13:29 Respiratory Rate 16 07/12/25 13:29 Blood Pressure 104/70 07/12/25 13:29 Pulse Oximetry 97 07/12/25 13:29 [facility] - General Adult Medical Decision Making Patient presented for evaluation of his PEG tube, the Had broken and he was seeking replacement of this. It was still functioning he was able to get his feedings normally, only concern was avoidance of contamination due to the cracked piece of the. Being that it is functional did not want to replace the whole PEG tube here and was unable to locate just a single So a sterile gauze is placed over the top of it and taped down and he is told to go to his surgeons office tomorrow to have this assessed and replaced there, do not want to risk complication such as perforation malposition or other issues being that it is not functional. Patient agrees with this plan discharge at this time. No radiology studies performed this visit Discharge Plan Discharge Patient Disposition: Home Clinical Impression: PEG tube malfunction Condition: Stable Prescriptions: No Action quetiapine 50 mg tablet PO DAILY Rx Instructions: @ bedtime sertraline 50 mg tablet PO DAILY Rx Instructions: at bedtime clonidine HCl 0.1 mg tablet PO BID pimozide 1 mg tablet PO DAILY Rx Instructions: @ bedtime Discharge Orders: Discharge ED (Routine); Ordered 07/12/25 Ordered By: Eleazar Rausch Referrals: Rafy Mast FNP [Primary Care Provider, Family Practice] Patient Instructions: Patient Portal & Blanca Instructions Activity Restrictions/Additional Instructions: PEG Tube Discharge Instructions Reason for Visit: You came to the emergency department because the cap on your feeding tube (PEG tube) broke. The tube itself is still working properly and can be used for feedings. We placed sterile gauze over the top and secured it with tape as a temporary measure. What You Need to Do: Call your provider, gastrointestinal surgeon, or the clinician who placed your PEG tube tomorrow morning to schedule replacement of the broken cap/hardware. This is important because the tube needs proper hardware to function safely long-term. Daily Care Instructions: - Clean the tube site daily with mild soap and water - Do not use hydrogen peroxide or alcohol-based products after the first week, as these can irritate your skin - Place clean gauze over (not under) the external bumper/disc to absorb any drainage - Check the external bumper positioning: The tube should be able to move in and out at least 1 cm (about half an inch) to prevent complications - Do not apply excessive tension or allow the bumper to be too tight against your skin Tube Feeding: You may continue your regular tube feedings as prescribed. Flush the tube with 30 mL of water every 4 hours during continuous feedings and before and after each feeding or medication to prevent clogging. Warning Signs - Seek Medical Attention If You Experience: - Fever, chills, or signs of infection (increased redness, warmth, swelling, pus, or foul-smelling drainage at the tube site) - Severe abdominal pain - The tube becomes dislodged or falls out - this is an emergency and you should go to the emergency department immediately or contact your provider - Inability to flush or use the tube - Excessive leakage of stomach contents or feeding formula around the tube site - Difficulty rotating or moving the tube in and out - Increasing pain at the tube site Important Reminders: - Keep the temporary gauze dressing clean and dry - Change the gauze if it becomes wet or soiled - Avoid pulling or placing excessive tension on the tube - Do not attempt to replace the tube yourself if it becomes dislodged Follow-Up: Contact your provider, gastrointestinal surgeon, or the clinician who placed your PEG tube tomorrow morning to arrange for hardware replacement. Print Language: Italian Coding Level of Care Code ED Employment And Claims Aide for Jaja Lo
== END 2025-07-12 16:15 | disposition home or self-care (01) ==
PROVIDERS: Emergency Provider Physician Assistant; PCP Registered Nurse
DX: K94.23 Gastrostomy malfunction (principal)
CPT/HCPCS: 99281